=== PATIENT | male | born 1990 | race Two or more races ===

== ENCOUNTER 2021-05-25 11:29 | Emergency (ER) | payer SELFPAY ==
[~2021-05-25] VITALS: Ht 177.8 cm; Wt 103.1 kg
--- NOTE | 2021-05-25 11:44 | NUR ---
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 Awaiting PA exam and orders. Ice water brought to pt and call light in reach.
[2021-05-25] MEDS ORDERED: QUET300T5 PO (11:49)
[2021-05-25] MEDS ORDERED: GABA-827 PO (11:49)
[2021-05-25] MEDS ORDERED: BUSP10TA PO (11:49)
[2021-05-25] MEDS ORDERED: DEXAMETHASONE 4 MG TABLET ONE (12:24)
[2021-05-25] MEDS ORDERED: DEXAMETHASONE 4 MG/ML, 1ML PO ONE (12:30)
--- NOTE | 2021-05-25 13:01 | NUR ---
XRAY reviewed and chart marked for recheck. Recommended CT with contrast due to xray findings. Awaiting PA to speak with pt about results and plan of care from this point.
--- NOTE | 2021-05-25 13:22 | NUR ---
Pt up to use restroom. IV start supplies brought to bedside.
[2021-05-25 13:30] LABS: BASOPHILS % (AUTO) 1 % (0-1); EOSINOPHILS % (AUTO) 2 % (1-7); LYMPHOCYTES % (AUTO) 30 % (22-44); MEAN CORPUSCULAR HEMOGLOBIN 29.8 pg (27.5-34.5); MEAN CORPUSCULAR HGB CONC 34.3 g/dL (33.2-36.2); MEAN PLATELET VOLUME 8.1 fL (7.4-10.4); MONOCYTES % (AUTO) 6 % (2-9); NEUTROPHILS % (AUTO) 62 % (42-75); PLATELET COUNT 216 x10^3/uL (130-400); RED BLOOD COUNT 5.27 x10^6/uL (4.38-5.82); RED CELL DISTRIBUTION WIDTH 13.1 % (9.4-14.8)
[2021-05-25] MEDS ORDERED: SODIUM CHLORIDE FLUSH 10ML SYR IVF ONE (13:30)
--- NOTE | 2021-05-25 13:31 | NUR ---
IV started and saline locked. Lab already jarek labs prior to IV start. Awaiting CT now. Pt requests something for anxiety. PA notified.
[2021-05-25] MEDS ORDERED: LORazepam 1MG TABLET ONE (13:52)
--- NOTE | 2021-05-25 13:54 | NUR ---
Pt medicated for anxiety at this time. Still awaiting CT.
[2021-05-25] MEDS ORDERED: LORazepam 2 MG/ML, 1ML IVPush ONE (14:00)
[2021-05-25 14:05] LABS: ALANINE AMINOTRANSFERASE 51 U/L (12-78); ALBUMIN 3.4 g/dL (3.4-5.0); ANION GAP 6 mmol/L (5-15); CALCIUM 8.7 mg/dL (8.5-10.1); CHLORIDE 106 mmol/L (98-107); CREATININE 0.84 mg/dL (0.7-1.3)
[2021-05-25 14:06] LABS: ALKALINE PHOSPHATASE 71 U/L (45-117); BILIRUBIN,TOTAL 0.3 mg/dL (0.2-1.0); TOTAL PROTEIN 7.7 g/dL (6.4-8.2)
--- NOTE | 2021-05-25 14:55 | NUR ---
Pt in CT now.
--- NOTE | 2021-05-25 14:56 | NUR ---
Pt back to room now without acute change while off unit. VS reassessed.
[2021-05-25] MEDS ORDERED: OMNIPAQUE 350 MG/ML, 75ML BOTTLE ONE (15:05)
--- NOTE | 2021-05-25 15:42 | NUR ---
Pt states some relief in anxiety noted since Ativan admin on reassessment before d/c. VS reassessed and pt d/c'd. [facility] person arrived to drive pt home.
[2021-05-25 15:55] VITALS: BP 129/80
== END 2021-05-25 15:57 | disposition home or self-care (01) ==
LOC: ED 15:40
DX: B34.9 Viral infection, unspecified (principal); Z20.822 Contact with and (suspected) exposure to COVID-19; F17.210 Nicotine dependence, cigarettes, uncomplicated
CPT/HCPCS: 36415; 71045; 71260; 80053; 85025; 96374; 99285; J1100; J2060; Q9967; U0003; U0005; 99406